=== PATIENT | male | born 1960 | race Caucasian/White ===

== ENCOUNTER → 2016-07-24 | Outpatient (CLI) | payer OTHER ==
[~2016-07-24] MED LIST: AMOX500T PO; ASPCH81X PO; ATOR-24 PO; BACL10TA PO; CALC600T9 PO; CEPH500C2 PO; CETI10TA84 PO; CICL80AE PO; CIPR1TAB11 PO; CLOP1TAB15 PO; DEXAMETHASONE 0.1% OPB; DOXY100C76 PO; ERTA1INJ IV; FOLI1TAB7 PO; FSMD/70 PO; FURO80TA63 PO; IMD/2 PO; INSDGI SC; INSHRIE SQ; INSU1INJ SC; ISOS30TA51 PO; LAMO25TA PO; LINE1TAB6 PO; LOSA50TA6 PO; MAGN400T6 PO; METH-1117 PO; METO50TA16 PO; MIRT15TA2 PO; NITR-5 PO; NORT25CA PO; NTRGSL/4 SL; OMEP20TA PO; OXYB5TAB74 PO; POTA10TA PO; POTA20TA16 PO; TRAZ1TAB8 PO; VANCOMYCIN IV IV; VNTHFA/IN INH; [UNRECOGNIZED DRUG - OTHER] OPB; guaifenesin PO
--- NOTE | 2016-08-06 13:10 | CODING QUERY NO DIAGNOSIS ---
TREATMENT RENDERED WITHOUT A DIAGNOSIS To promote full compliance with coding requirements relating to patient care, physician participation is requested in all cases of certified coder uncertainty. Please assist us with providing a diagnosis/symptom for the test(s) below: A diagnosis/symptom was not documented on your Order. A valid diagnosis/symptom is required to bill all insurances. Please remember that we are unable to code a diagnosis of rule out, probable, possible, questionable, or suspected. Tests that require a diagnosis: * VANVOMYCIN TROUGH DIAGNOSIS: Provider Signature: Date: Thank you Farideh Clemm[facility] [employer] Once completed, please kindly fax back to [phone] For questions please call [phone]
== END | disposition home or self-care (01) ==
LOC: C.LABSPEC 10:44
PROVIDERS: ATTEND Family Medicine
DX: L03.90 Cellulitis, unspecified (principal)

== ENCOUNTER → 2016-07-26 | Day surgery (SDC) | payer OTHER ==
[~2016-07-26] VITALS: Ht 188 cm; Wt 103.0 kg
[2016-07-26 09:32] VITALS: BP 161/102; PULSE 74; TEMP 36.5; O2SAT 99; Ht 188 cm; Wt 103.0 kg
[2016-07-26 11:10] VITALS: BP 114/76; PULSE 66; TEMP 36.6; O2SAT 97
== END | disposition home or self-care (01) ==
LOC: C.MTU 09:11
PROVIDERS: ATTEND Internal Medicine Critical Care Medicine
DX: L03.90 Cellulitis, unspecified (principal)